=== PATIENT | female | born 1985 | race Caucasian/White ===

== ENCOUNTER 2018-03-14 20:07 | Emergency (ER) | payer OTHER ==
[2018-03-14 20:36] VITALS: BP 105/67
[2018-03-14] MEDS ORDERED: PENICILLIN V POTASSIUM 500 MG TABLET PO ONE (22:33)
[2018-03-14] MEDS ORDERED: DIPHENHYDRAMINE HCL 50 MG CAPSULE PO ONE (22:35)
[2018-03-14] MEDS ORDERED: PROCHLORPERAZINE MALEATE 10 MG TABLET PO ONE (22:35)
[2018-03-14] MEDS ORDERED: ACETAMINOPHEN 325 MG TABLET PO ONE (22:36)
--- NOTE | 2018-03-14 22:40 | ER Document Report ---
ED General - General Mode of Arrival: Ambulatory Information source: Patient TRAVEL OUTSIDE OF THE [place] IN LAST 30 DAYS: No <ANNA CONNELLY - Last Filed: 03/14/18 22:44> <JORGE GUTIERREZ - Last Filed: 03/14/18 23:52> - General Chief Complaint: Headache Stated Complaint: HEADACHES Time Seen by Provider: 03/14/18 22:02 Notes: Patient is a 32 year old female with a past history of narcotic abuse (and previous suboxone program) and migraines presents to the emergency department complaining of multiple symptoms including a headache, left ear pain and left lower tooth pain onset 4 days ago. Patient states her current headaches is not like her previous migraines stating her current one is lasting longer. Patient also complains of diaphoresis. She states she took a Motrin prior to arrival to the emergency department, approximately 2 hours ago. (ANNA CONNELLY) Patient is presently on methadone for her narcotic dependency, clonidine, Topamax, and sertraline for her posttraumatic stress disorder. (JORGE GUTIERREZ) - Related Data Allergies/Adverse Reactions: Iodinated Contrast- Oral and IV Dye [IV Dye, Iodine Containing] Allergy ( Verified 08/29/14 21:19) Anaphylaxis ketorolac tromethamine [From Toradol] Allergy (Verified 08/29/14 21:19) Hives Past Medical History - General Information source: Patient, [facility] Records - Social History Smoking Status: Current Every Day Smoker Family History: None Neurological Medical History: Reports: Hx Seizures Renal/ Medical History: Reports: Hx Ovarian Cysts GI Medical History: Reports: Hx Diverticulitis Musculoskeltal Medical History: Reports Hx Fibromyalgia Psychiatric Medical History: Reports: Hx Anxiety, Hx Depression, Hx Post Traumatic Stress Disorder Past Surgical History: Reports: Hx Abdominal Surgery, Hx Adenoidectomy, Hx Appendectomy, Hx Gynecologic Surgery, Hx Tonsillectomy - Immunizations Hx Diphtheria, Pertussis, Tetanus Vaccination: Yes - 2008 Hx Pneumococcal Vaccination: 11/06/08 <ANNA CONNELLY - Last Filed: 03/14/18 22:44> - Social History Cigarette use (# per day): Yes Chew tobacco use (# tins/day): No Smoking Education Provided: No Frequency of alcohol use: None Drug Abuse: Other - Narcotic dependency takes methadone denies drug abuse at this time Occupation: Unemployed Lives with: Friend Family History: Reviewed & Not Pertinent <JORGE GUTIERREZ - Last Filed: 03/14/18 23:52> Review of Systems - Review of Systems Constitutional: See HPI, Diaphoresis EENT: See HPI, Ear pain - left, Dental problem Cardiovascular: No symptoms reported Respiratory: No symptoms reported Gastrointestinal: No symptoms reported Genitourinary: No symptoms reported Female Genitourinary: No symptoms reported Musculoskeletal: No symptoms reported Skin: No symptoms reported Hematologic/Lymphatic: No symptoms reported Neurological/Psychological: See HPI, Headaches -: Yes All other systems reviewed and negative <ANNA CONNELLY - Last Filed: 03/14/18 22:44> Physical Exam - General General appearance: Appears well, Alert In distress: None - HEENT Head: Normocephalic, Atraumatic Eyes: Normal Conjunctiva: Normal Extraocular movements intact: Yes Pupils: PERRL Tympanic membrane: Normal Mouth/Lips: Dental fracture - left 2nd molar decayed, fractured, and tender to palpation. Minmal amount of swelling surrouding. Right 2nd and 3rd molar decayed and fractured, not currently tender to palaption. - Respiratory Respiratory status: No respiratory distress - Cardiovascular Rhythm: Regular Heart sounds: Normal auscultation - Extremities General upper extremity: Normal ROM General lower extremity: Normal ROM - Neurological Neuro grossly intact: Yes Cognition: Normal Orientation: AAOx4 [place] Coma Scale Eye Opening: Spontaneous Jones Coma Scale Verbal: Oriented Jones Coma Scale Motor: Obeys Commands Jones Coma Scale Total: 15 Speech: Normal - Psychological Associated symptoms: Normal affect, Normal mood - Skin Skin Temperature: Warm Skin Moisture: Dry Skin Color: Normal <ANNA CONNELLY - Last Filed: 03/14/18 22:44> - Vital signs Vitals: Temp Pulse Resp BP Pulse Ox 98.0 F 78 16 105/67 98 03/14/18 20:34 03/14/18 20:34 03/14/18 20:34 03/14/18 20:34 03/14/18 20:34 - Vital Signs Vital signs: Temp Pulse Resp BP Pulse Ox 98.0 F 78 16 105/67 98 03/14/18 20:35 03/14/18 20:35 03/14/18 20:35 03/14/18 20:35 03/14/18 20:35 Discharge <ANNA CONNELLY - Last Filed: 03/14/18 22:44> <JORGE GUTIERREZ - Last Filed: 03/14/18 23:52> - Discharge Clinical Impression: Tooth ache Headache Qualifiers: Headache type: other headache syndrome Qualified Code(s): G44.89 - Other headache syndrome Condition: Stable Disposition: HOME, SELF-CARE Instructions: Dentist Additional Instructions: Toothache Your pain is due to dental decay. The tooth must be repaired in order for you to feel better. You will, therefore, be referred to a dentist. Severe swelling or drainage around a tooth usually means a deep dental abscess. This also requires evaluation and treatment by the dentist, but antibiotics may be prescribed while awaiting dental treatment. You should be rechecked immediately if you develop major swelling of the face, increasing pain, a lump in the jaw or gums, headache, or fever. Take medications as prescribed. Take Tylenol and ibuprofen for pain as needed. Follow-up with a local dentist for definitive treatment of your severely decayed teeth. Prescriptions: Penicillin V Potassium [Penicillin Vk 500 mg Tablet] 500 mg PO QID #28 tablet Referrals: DENTISTRY [Provider Group] - Follow up as needed Scribe Attestation: 03/14/18 22:59 I personally performed the services described in the documentation, reviewed and edited the documentation which was dictated to the scribe in my presence, and it accurately records my words and actions. (JORGE GUTIERREZ) Scribe Documentation - Scribe Written by Rocco:: Rocco Hickman, 03/14/2018 22:47 acting as scribe for :: Nolvia <ANNA CONNELLY - Last Filed: 03/14/18 22:44>
== END 2018-03-15 00:05 | disposition home or self-care (01) ==
LOC: ER 20:07
DX: R51 Headache (principal); K02.9 Dental caries, unspecified; K08.89 Other specified disorders of teeth and supporting structures; H92.02 Otalgia, left ear; R61 Generalized hyperhidrosis; F17.200 Nicotine dependence, unspecified, uncomplicated; F19.20 Other psychoactive substance dependence, uncomplicated; Z79.891 Long term (current) use of opiate analgesic; Z86.69 Personal history of other diseases of the nervous system and sense organs
CPT/HCPCS: 99283; S0183

== ENCOUNTER 2019-07-16 18:29 | Emergency (ER) | payer OTHER ==
--- NOTE | 2019-07-16 20:56 | EKG REPORT ---
SEVERITY:- OTHERWISE NORMAL ECG - SINUS TACHYCARDIA : Confirmed by: Teresa Davis MD 16-Jul-2019 20:56:07
[2019-07-16] MEDS ORDERED: HYDROCODONE/ACETAMINOPHEN 5-325 MG TABLET PO ONE (21:05)
[2019-07-16] MEDS ORDERED: NORMAL SALINE 1000 ML 1,000 ML IV ONE (21:05)
--- NOTE | 2019-07-16 21:07 | ER Document Report ---
ED Medical Screen (RME) - General Chief Complaint: Headache Stated Complaint: HEADACHE Time Seen by Provider: 07/16/19 21:00 Notes: 34-year-old female with 2 complaints. First complaint is sharp pain from a broken tooth with swelling sensation on the left side of her face that radiates up to the ear and is causing her headache. Second complaint is sharp pain in the left flank that right now feels like it is throbbing. She denies vomiting, abdominal pain, dysuria. She states she has felt like she has been running a fever at home. She denies cough, shortness of breath, chest pain. TRAVEL OUTSIDE OF THE [place] IN LAST 30 DAYS: No - Related Data Allergies/Adverse Reactions: Iodinated Contrast Media [IV Dye, Iodine Containing] Allergy (Verified 07/16/19 18:32) Anaphylaxis ketorolac tromethamine [From Toradol] Allergy (Verified 07/16/19 18:32) Hives Past Medical History Neurological Medical History: Reports: Hx Seizures Renal/ Medical History: Reports: Hx Ovarian Cysts. Denies: Hx Peritoneal Dialysis GI Medical History: Reports: Hx Diverticulitis Musculoskeltal Medical History: Reports Hx Fibromyalgia Psychiatric Medical History: Reports: Hx Anxiety, Hx Depression, Hx Post Traumatic Stress Disorder Past Surgical History: Reports: Hx Abdominal Surgery, Hx Adenoidectomy, Hx Appendectomy, Hx Gynecologic Surgery, Hx Tonsillectomy - Immunizations Hx Diphtheria, Pertussis, Tetanus Vaccination: Yes - 2008 Physical Exam - Vital signs Vitals: Temp Pulse Resp BP Pulse Ox 99.1 F 123 H 18 119/77 92 07/16/19 18:45 07/16/19 18:45 07/16/19 18:45 07/16/19 18:45 07/16/19 18:45 - HEENT Mouth/Lips: Other - Dental caries on the left with erythema of the gumline but no noted abscess or swelling of the face - Cardiovascular Rhythm: Regular, Tachycardia Heart sounds: Normal auscultation, S1 appreciated, S2 appreciated Course - Re-evaluation Re-evalutation: I have greeted and performed a rapid initial assessment of this patient. A comprehensive ED assessment and evaluation of the patient, analysis of test results and completion of the medical decision making process will be conducted by additional ED providers. - Vital Signs Vital signs: Temp Pulse Resp BP Pulse Ox 99.1 F 123 H 18 119/77 92 07/16/19 18:45 07/16/19 18:45 07/16/19 18:45 07/16/19 18:45 07/16/19 18:45
[2019-07-16] MEDS ORDERED: DEXAMETHASONE 4 MG TABLET PO ONE (21:57)
[2019-07-16] MEDS ORDERED: METOCLOPRAMIDE HCL 10 MG TABLET PO ONE (21:57)
[2019-07-16] MEDS ORDERED: KETOROLAC TROMETHAMINE 60 MG/2 ML SDV IM ONE (21:57)
[2019-07-16] MEDS ORDERED: DIPHENHYDRAMINE HCL 50 MG CAPSULE PO ONE (21:57)
[2019-07-16 22:02] LABS: ABSOLUTE BASOPHILS # (AUTO) 0.1 10^3/uL (0.0-0.2); ABSOLUTE EOSINOPHILS # (AUTO) 0.1 10^3/uL (0.0-0.6); ABSOLUTE LYMPHOCYTES (AUTO) 3.3 10^3/uL (0.5-4.7); ABSOLUTE MONOCYTES (AUTO) 0.4 10^3/uL (0.1-1.4); ABSOLUTE NEUT (AUTO) 3.2 10^3/uL (1.7-8.2); EOSINOPHILS % (AUTO) 1.4 % (0-6); HEMATOCRIT 46.4 % (36.0-47.0); HEMOGLOBIN 15.8 g/dL (12.0-15.5); LYMPHOCYTES % (AUTO) 46.3 % (13-45); MEAN CORPUSCULAR HEMOGLOBIN 33.1 pg (27.0-33.4); MEAN CORPUSCULAR HGB CONC 34.1 g/dL (32.0-36.0); MEAN CORPUSCULAR VOLUME 97 fl (80-97); MONOCYTES % (AUTO) 6.2 % (3-13); PLATELET COUNT 302 10^3/uL (150-450); RED BLOOD COUNT 4.78 10^6/uL (3.72-5.28); RED CELL DISTRIBUTION WIDTH 13.6 % (11.5-14.0); SEGMENTED NEUTROPHILS % (AUTO) 45.1 % (42-78); TOTAL CELLS COUNTED % (AUTO) 100 %; WHITE BLOOD COUNT 7.1 10^3/uL (4.0-10.5)
[2019-07-16 22:04] LABS: AMORPHOUS SEDIMENT,URINE TRACE /HPF; APPEARANCE,URINE CLOUDY; BILIRUBIN,URINE NEGATIVE (NEGATIVE); COLOR,URINE YELLOW; GLUCOSE, URINE NEGATIVE (NEGATIVE); KETONES,URINE NEGATIVE (NEGATIVE); LEUKOCYTE ESTERASE,URINE NEGATIVE (NEGATIVE); NITRITE,URINE NEGATIVE (NEGATIVE); PROTEIN,URINE NEGATIVE (NEGATIVE); URINE SPECIFIC GRAVITY 1.019; UROBILINOGEN,URINE NEGATIVE mg/dL (<2.0)
--- NOTE | 2019-07-16 22:05 | ER Document Report ---
ED General - General Chief Complaint: Headache Stated Complaint: HEADACHE Time Seen by Provider: 07/16/19 21:00 Notes: 34-year-old female presents with headache. Describes left face pain, intermittent shooting down her face from her left ear. Is been going on for a couple days. This in the setting of runny nose congestion and intermittent fevers. She has also some bad teeth especially in the left lower. She denies blurry vision neck stiffness or back pain. She has some left flank pain as well. Is been going on for several weeks. No nausea vomiting. Prior history of endometriosis and surgery on the left flank/lower quadrant that she is not sure what is for. She also feels a knot where the flank pain is underneath this incision. Normal urination. TRAVEL OUTSIDE OF THE [place] IN LAST 30 DAYS: No - Related Data Allergies/Adverse Reactions: Iodinated Contrast Media [IV Dye, Iodine Containing] Allergy (Verified 07/16/19 18:32) Anaphylaxis ketorolac tromethamine [From Toradol] Allergy (Verified 07/16/19 18:32) Hives Past Medical History - General Last Menstrual Period: Last month - Social History Smoking Status: Current Every Day Smoker Family History: Reviewed & Not Pertinent Neurological Medical History: Reports: Hx Seizures Renal/ Medical History: Reports: Hx Ovarian Cysts. Denies: Hx Peritoneal Dialysis GI Medical History: Reports: Hx Diverticulitis Musculoskeletal Medical History: Reports Hx Fibromyalgia Psychiatric Medical History: Reports: Hx Anxiety, Hx Depression, Hx Post Trauma tic Stress Disorder Past Surgical History: Reports: Hx Abdominal Surgery, Hx Adenoidectomy, Hx Appendectomy, Hx Gynecologic Surgery, Hx Tonsillectomy - Immunizations Hx Diphtheria, Pertussis, Tetanus Vaccination: Yes - 2008 Hx Pneumococcal Vaccination: 11/06/08 Review of Systems - Review of Systems Notes: REVIEW OF SYSTEMS GEN: Denies fever, chills, weight loss ENT: See HPI EYES: Denies blurry vision, eye pain, discharge CV: Denies chest pain, palpitations, edema RESP: Denies cough, shortness of breath, wheezing GI: See HPI MSK: Denies joint pain/swelling, edema, SKIN: Denies rash, skin lesions LYMPH: Denies swollen glands/lymph nodes NEURO: See HPI PSYCH: Denies depression, suicidal or homicidal ideation PHYSICAL EXAMINATION General: No acute distress, well-nourished Head: Atraumatic, normocephalic ENT: Mouth normal, oropharynx moist, no exudates or tonsillar enlargement with multiple tooth decay left lower. Mild tooth tenderness at the site but no maxillary tenderness. Bilateral TMs are normal. Eyes: Conjunctiva normal, pupils equal, lids normal Neck: No JVD, supple, no guarding CVS: Normal rate, regular rhythm, no murmurs Resp: No resp distress, equal and normal breath sounds bilaterally GI: Nondistended, soft, no tenderness to palpation, no rebound or guarding Ext: No deformities, no edema, normal range of motion in upper and lower ext Back: No CVA or midline TTP Skin: No rash, warm Lymphatic: No lymphadeopathy noted Neuro: Awake, alert. Face symmetric. GCS 15. cn2-12 nl. Physical Exam - Vital signs Vitals: Temp Pulse Resp BP Pulse Ox 99.1 F 123 H 18 119/77 92 07/16/19 18:45 07/16/19 18:45 07/16/19 18:45 07/16/19 18:45 07/16/19 18:45 Course - Re-evaluation Re-evalutation: 07/16/19 22:53 Patient presents with left-sided face pain/headache, possibly from decaying teeth or sinusitis but also could be trigeminal neuralgia. Neck not stiff no meningismus no fever doubt meningitis. She was given a migraine cocktail which improved her symptoms. Was initially tachycardic but this resolved. Labs ordered at triage are all negative including urine. Her flank pain is accounted for by a reducible incisional hernia. [facility] I have discussed with the patient there likely diagnosis, aftercare plan, follow-up plans and my usual and customary return precautions. They verbalized understanding of this. - Vital Signs Vital signs: Temp Pulse Resp BP Pulse Ox 99.1 F 123 H 18 119/77 92 07/16/19 18:45 07/16/19 18:45 07/16/19 18:45 07/16/19 18:45 07/16/19 18:45 - Laboratory Result Diagrams: 07/16/19 21:24 07/16/19 21:24 Laboratory results interpreted by me: 07/16/19 21:24 Hgb 15.8 H Lymph % (Auto) 46.3 H Discharge - Discharge Clinical Impression: Facial pain Acute sinusitis Qualifiers: Sinusitis location: maxillary Recurrence: non-recurrent Qualified Code(s): J01.00 - Acute maxillary sinusitis, unspecified Disposition: HOME, SELF-CARE Instructions: Headache ([facility]), Sinusitis ([facility]) Additional Instructions: Your facial pain may be from teeth decay or sinus infection thus we are treating you with antibiotics. There also may be a chance to have a headache syndrome such as trigeminal neuralgia if your headache does not resolve after a few days of antibiotics and ibuprofen you to follow-up with your primary for a referral to neurology. Prescriptions: Naproxen Sodium [Aleve] 220 mg PO BID #30 capsule Amox Tr/Potassium Clavulanate [Augmentin 875-125 Tablet] 1 tab PO BID 10 Days tablet
[2019-07-16 22:18] LABS: ALBUMIN 4.5 g/dL (3.5-5.0); ALKALINE PHOSPHATASE 38 U/L (38-126); ANION GAP 8 (5-19); ASPARTATE AMINO TRANSFERASE 32 U/L (14-36); BILIRUBIN,DIRECT 0.2 mg/dL (0.0-0.4); BILIRUBIN,TOTAL 0.4 mg/dL (0.2-1.3); BLOOD UREA NITROGEN 10 mg/dL (7-20); CALCIUM 9.5 mg/dL (8.4-10.2); CARBON DIOXIDE 30 mmol/L (22-30); CHLORIDE 100 mmol/L (98-107); GLUCOSE 79 mg/dL (75-110); POTASSIUM 4.7 mmol/L (3.6-5.0); TOTAL PROTEIN 7.3 g/dL (6.3-8.2)
[2019-07-16] MEDS ORDERED: AMOXICILLIN TR/POT CLAVULANATE 500-125 MG TAB PO ONE (22:41)
[2019-07-16 23:37] VITALS: BP 124/70
== END 2019-07-16 23:34 | disposition home or self-care (01) ==
LOC: ER 18:29
DX: J01.00 Acute maxillary sinusitis, unspecified (principal); R51 Headache; H92.02 Otalgia, left ear; R09.89 Other specified symptoms and signs involving the circulatory and respiratory systems; R10.9 Unspecified abdominal pain; K02.9 Dental caries, unspecified; R00.0 Tachycardia, unspecified; F17.200 Nicotine dependence, unspecified, uncomplicated; Z90.49 Acquired absence of other specified parts of digestive tract; Z87.42 Personal history of other diseases of the female genital tract; Z87.19 Personal history of other diseases of the digestive system; Z87.892 Personal history of anaphylaxis; Z91.041 Radiographic dye allergy status; Z88.8 Allergy status to other drugs, medicaments and biological substances
CPT/HCPCS: 93005; 99284; 96372; 36415; 85025; 81025; 80053; 81001; 93010; J1885

== ENCOUNTER 2019-07-20 02:44 | Emergency (ER) | payer OTHER ==
[2019-07-20 02:51] VITALS: BP 126/75
[2019-07-20] MEDS ORDERED: ALBUTEROL SULFATE HFA (90 MCG/PUFF) 8 GM MDI (1 MDI/ER DISP) IH PRN (03:45)
[2019-07-20] MEDS ORDERED: DIPHENHYDRAMINE HCL 50 MG/ML VIAL IV ONE (03:56)
[2019-07-20] MEDS ORDERED: HYDROCODONE/ACETAMINOPHEN 5-325 MG TABLET PO ONE (04:00)
[2019-07-20] MEDS ORDERED: METOCLOPRAMIDE HCL INJ/PF 10 MG/2 ML SDV IV ONE (04:00)
[2019-07-20] MEDS ORDERED: NORMAL SALINE 1000 ML 1,000 ML IV ONE (04:04)
[2019-07-20 04:14] LABS: ABSOLUTE BASOPHILS # (AUTO) 0.1 10^3/uL (0.0-0.2); ABSOLUTE EOSINOPHILS # (AUTO) 0.1 10^3/uL (0.0-0.6); ABSOLUTE LYMPHOCYTES (AUTO) 2.9 10^3/uL (0.5-4.7); ABSOLUTE MONOCYTES (AUTO) 0.4 10^3/uL (0.1-1.4); ABSOLUTE NEUT (AUTO) 3.4 10^3/uL (1.7-8.2); BASOPHILS % (AUTO) 0.9 % (0-2); EOSINOPHILS % (AUTO) 1.1 % (0-6); HEMATOCRIT 41.6 % (36.0-47.0); HEMOGLOBIN 14.2 g/dL (12.0-15.5); LYMPHOCYTES % (AUTO) 42.5 % (13-45); MEAN CORPUSCULAR HEMOGLOBIN 32.8 pg (27.0-33.4); MEAN CORPUSCULAR HGB CONC 34.2 g/dL (32.0-36.0); MEAN CORPUSCULAR VOLUME 96 fl (80-97); MONOCYTES % (AUTO) 6.5 % (3-13); PLATELET COUNT 260 10^3/uL (150-450); RED BLOOD COUNT 4.34 10^6/uL (3.72-5.28); RED CELL DISTRIBUTION WIDTH 13.2 % (11.5-14.0); TOTAL CELLS COUNTED % (AUTO) 100 %; WHITE BLOOD COUNT 6.9 10^3/uL (4.0-10.5)
[2019-07-20 04:32] LABS: ANION GAP 7 (5-19); BLOOD UREA NITROGEN 14 mg/dL (7-20); CALCIUM 9.2 mg/dL (8.4-10.2); CARBON DIOXIDE 28 mmol/L (22-30); CHLORIDE 103 mmol/L (98-107); GLUCOSE 95 mg/dL (75-110); POTASSIUM 4.1 mmol/L (3.6-5.0)
[2019-07-20] MEDS ORDERED: ONDANSETRON ODT 4 MG TAB (6 TAB/ER DISP) PO PRN (06:45)
[2019-07-20] MEDS ORDERED: OXYCODONE-ACETAMINOPHEN 5-325 MG TABLET PO ONE (06:45)
--- NOTE | 2019-07-20 06:45 | ER Document Report ---
ED General - General Chief Complaint: Headache Stated Complaint: HEADACHE Time Seen by Provider: 07/20/19 03:37 Primary Care Provider: AMARJIT HARGROVE [Primary Care Provider] - 07/22/19 Notes: Patient is a 34-year-old female who presents emergency department with a chief complaint of a headache. She states it feels the same as it did the other day. She was diagnosed with trigeminal neuralgia. She states that she feels like it is any pain on the left side of her face. She describes it as a tingling sensation and is intermittent. When her pain comes at a severe. She has attempted to take ibuprofen to help with her symptoms, but has had little relief. She has not started on her Augmentin that she was prescribed other day due to her having the [facility] and she states that she has an appointment on Monday to see her primary care provider to have her medications refilled. She denies any slurred speech, numbness or tingling in her arms or legs. Denies any new weakness. TRAVEL OUTSIDE OF THE [place] IN LAST 30 DAYS: No - Related Data Allergies/Adverse Reactions: Iodinated Contrast Media [IV Dye, Iodine Containing] Allergy (Verified 07/16/19 18:32) Anaphylaxis ketorolac tromethamine [From Toradol] Allergy (Verified 07/16/19 18:32) Hives Past Medical History - General Information source: Patient - Social History Smoking Status: Current Every Day Smoker Family History: Reviewed & Not Pertinent Neurological Medical History: Reports: Hx Seizures Renal/ Medical History: Reports: Hx Ovarian Cysts. Denies: Hx Peritoneal Dialysis GI Medical History: Reports: Hx Diverticulitis Musculoskeletal Medical History: Reports Hx Fibromyalgia Psychiatric Medical History: Reports: Hx Anxiety, Hx Depression, Hx Post Traumatic Stress Disorder Past Surgical History: Reports: Hx Abdominal Surgery, Hx Adenoidectomy, Hx Appendectomy, Hx Gynecologic Surgery, Hx Tonsillectomy - Immunizations Hx Diphtheria, Pertussis, Tetanus Vaccination: Yes - 2008 Hx Pneumococcal Vaccination: 11/06/08 Review of Systems - Review of Systems Notes: REVIEW OF SYSTEMS: CONSTITUTIONAL : Denies recent illness. Denies recent unintentional weight loss. Denies fever, chills, or sweats. EENT: Denies eye, ear, throat, or mouth pain, discharge, or symptoms. Denies nasal or sinus congestion. CARDIOVASCULAR: Denies chest pain. RESPIRATORY: Denies shortness of breath, cough, congestion, difficulty breathing, or wheezing. GASTROINTESTINAL: Denies nausea, vomiting, and diarrhea. Denies abdominal pain. Denies constipation. GENITOURINARY: Denies difficulty urinating, burning, blood in urine, urgency or frequency. MUSCULOSKELETAL: Denies neck and back pain. Denies joint pain or swelling. SKIN: Denies rash, itchiness, or lesions HEMATOLOGIC : Denies easy bruising or bleeding. LYMPHATIC: Denies swollen, painful, enlarged glands. NEUROLOGICAL: See HPI. PSYCHIATRIC: Denies stress, anxiety, alteration in sleep patterns, or depression. All other systems reviewed and negative. Physical Exam - Vital signs Vitals: Temp Pulse Resp BP Pulse Ox 98.7 F 95 19 126/75 H 95 07/20/19 02:46 07/20/19 02:46 07/20/19 02:46 07/20/19 02:46 07/20/19 02:46 - Notes Notes: PHYSICAL EXAMINATION: GENERAL: Appears well, healthy, well-nourished, no acute distress. HEAD: Normocephalic, atraumatic. Tenderness noted to the left side of the face. EYES: PERRL, conjunctiva normal, all extraocular movements intact, sclera nonicteric ENT: Moist mucous membranes. NECK: Supple, no noticeable swelling, redness, rash. Normal range of motion. LUNGS: Equal breath sounds bilaterally and clear to auscultation. No wheezes rales or rhonchi. CARDIOVASCULAR: S1-S2, regular rate, regular rhythm. Radial pulses 2+, normal. ABDOMEN: Normoactive bowel sounds. Soft, nontender, no guarding, no rebound tenderness, and no masses palpated. EXTREMITIES: Normal strength and range of motion, no pitting or edema. No cyanosis. NEUROLOGICAL: Moves all extremities upon command. Strength 5/5 in all extremities. PSYCH: Normal mood, normal affect. SKIN: Warm, dry. No rash, lesions, ulcerations noted. Normal skin turgor. Course - Re-evaluation Re-evalutation: 07/20/19 06:47 Hematology and chemistry are unremarkable. There is no leukocytosis noted. No anemia noted. Patient states that she feels her headache has completely resolved with Benadryl, Reglan, and [place]. I will give her a dose of her antibiotics, but I spoke to the patient about how imperative it is for her to fill her Augmentin. She states that she will have her Augmentin filled at the [facility] on Monday. She will be sent home with a [place] dose pack and a Zofran Dosepak to help with her symptoms. She is in agreement with this plan. Follow-up precautions were given. Verbal discharge instructions were given to the patient. They verbalized understanding. They are stable for discharge. - Vital Signs Vital signs: Temp Pulse Resp BP Pulse Ox 98.7 F 95 19 126/75 H 95 07/20/19 02:46 07/20/19 02:46 07/20/19 02:46 07/20/19 02:46 07/20/19 02:46 - Laboratory Result Diagrams: 07/20/19 04:00 07/20/19 04:00 Discharge - Discharge Clinical Impression: Facial pain Headache Qualifiers: Headache type: other headache syndrome Qualified Code(s): G44.89 - Other headache syndrome Condition: Stable Disposition: HOME, SELF-CARE Additional Instructions: You were seen today in the emergency department for a headache. Your headache was resolved with the treatment here in the emergency department. You are being sent home with [place], medication to help with your pain. You can take 1 tablet every 4-6 hours as needed. Try to limit the amount of times you take your [place], as you may have a small amount. You can also take ibuprofen to help with your pain. Take 600 mg every 6 hours. You can take 650 mg of every 6 hours. If you have a headache, please take 50 mg of Benadryl immediately. You can take it every 4-6 hours as needed for your headache. Please make sure you get plenty of rest. Please make sure you follow-up with your primary care provider on Monday to have your antibiotics filled. Referrals: [facility] [Primary Care Provider] - 07/22/19
[2019-07-20] MEDS ORDERED: HYDROCODONE/ACETAMINOPHEN 5-325 MG (6 TAB/ER DISP) PO PRN (06:46)
[2019-07-20] MEDS ORDERED: AMOXICILLIN TR/POT CLAVULANATE 500-125 MG TAB PO ONE (06:53)
[2019-07-20] MEDS ORDERED: AMOXICILLIN TRIHYD 250 MG CAPSULE PO ONE (06:53)
== END 2019-07-20 07:14 | disposition home or self-care (01) ==
LOC: ER 02:44
DX: G44.89 Other headache syndrome (principal); R20.2 Paresthesia of skin; T36.0X6A Underdosing of penicillins, initial encounter; Z91.128 Patient's intentional underdosing of medication regimen for other reason; F17.200 Nicotine dependence, unspecified, uncomplicated; Z91.041 Radiographic dye allergy status; Z88.8 Allergy status to other drugs, medicaments and biological substances
CPT/HCPCS: 99284; 96361; 96374; 96375; 36415; 85025; 80048; J3490 ×2; J1200; J2765; J7030

== ENCOUNTER 2020-02-29 11:30 | Emergency (ER) | payer OTHER ==
[2020-02-29] MEDS ORDERED: METOCLOPRAMIDE HCL INJ/PF 10 MG/2 ML SDV IV ONE (11:50)
[2020-02-29] MEDS: NORMAL SALINE 1000 ML 1,000 ML IV PRN ×2 (11:59→13:07)
[2020-02-29 12:17] LABS: ABSOLUTE LYMPHOCYTES (AUTO) 1.4 10^3/uL (0.5-4.7); ABSOLUTE MONOCYTES (AUTO) 0.2 10^3/uL (0.1-1.4); ABSOLUTE NEUT (AUTO) 7.7 10^3/uL (1.7-8.2); BASOPHILS % (AUTO) 0.3 % (0-2); EOSINOPHILS % (AUTO) 0.2 % (0-6); HEMATOCRIT 44.1 % (36.0-47.0); HEMOGLOBIN 15.7 g/dL (12.0-15.5); LYMPHOCYTES % (AUTO) 14.7 % (13-45); MEAN CORPUSCULAR HEMOGLOBIN 34.2 pg (27.0-33.4); MEAN CORPUSCULAR HGB CONC 35.5 g/dL (32.0-36.0); MEAN CORPUSCULAR VOLUME 96 fl (80-97); MONOCYTES % (AUTO) 2.6 % (3-13); PLATELET COUNT 259 10^3/uL (150-450); RED BLOOD COUNT 4.58 10^6/uL (3.72-5.28); RED CELL DISTRIBUTION WIDTH 13.6 % (11.5-14.0); SEGMENTED NEUTROPHILS % (AUTO) 82.2 % (42-78); TOTAL CELLS COUNTED % (AUTO) 100 %; WHITE BLOOD COUNT 9.3 10^3/uL (4.0-10.5)
[2020-02-29 12:38] LABS: AMORPHOUS SEDIMENT,URINE 1+ /HPF; APPEARANCE,URINE TURBID; BILIRUBIN,URINE NEGATIVE (NEGATIVE); COLOR,URINE YELLOW; GLUCOSE, URINE NEGATIVE (NEGATIVE); KETONES,URINE 80 mg/dL (NEGATIVE); PROTEIN,URINE 30 mg/dL (NEGATIVE); URINE SPECIFIC GRAVITY 1.017; UROBILINOGEN,URINE NEGATIVE mg/dL (<2.0)
[2020-02-29 12:45] LABS: ALBUMIN 4.4 g/dL (3.5-5.0); ALKALINE PHOSPHATASE 47 U/L (38-126); ANION GAP 9 (5-19); ASPARTATE AMINO TRANSFERASE 28 U/L (14-36); BILIRUBIN,TOTAL 0.5 mg/dL (0.2-1.3); BLOOD UREA NITROGEN 15 mg/dL (7-20); CALCIUM 9.5 mg/dL (8.4-10.2); CARBON DIOXIDE 21 mmol/L (22-30); CHLORIDE 107 mmol/L (98-107); GLUCOSE 173 mg/dL (75-110); TOTAL PROTEIN 7.1 g/dL (6.3-8.2)
[2020-02-29 12:48] LABS: ALCOHOL < 10 mg/dL (NONE DETECTED)
[2020-02-29 12:53] LABS: URINE AMPHETAMINES SCREEN NEGATIVE; URINE BARBITURATES SCREEN NEGATIVE; URINE BENZODIAZEPINES SCREEN NEGATIVE; URINE COCAINE SCREEN NEGATIVE; URINE PHENCYCLIDINE SCREEN NEGATIVE
[2020-02-29 12:55] LABS: URINE MARIJUANA (THC) SCREEN UNCONFIRMED POSITIVE; URINE METHADONE SCREEN UNCONFIRMED POSITIVE
[2020-02-29] MEDS ORDERED: PROCHLORPERAZINE EDISYLATE INJ 10 MG/2 ML VIAL IV ONE (12:55)
[2020-02-29] MEDS ORDERED: FENTANYL CITRATE INJ/PF 100 MCG/2 ML AMPUL IV ONE ×2 (12:56→13:56)
--- NOTE | 2020-02-29 13:12 | ER Document Report ---
ED General - General Chief Complaint: Abdominal Pain Stated Complaint: ABDOMINAL PAIN Time Seen by Provider: 02/29/20 11:37 Primary Care Provider: [facility]INN[facility] [Primary Care Provider] - Follow up as needed TRAVEL OUTSIDE OF THE [place] IN LAST 30 DAYS: No - HPI Notes: Chief complaint: Abdominal pain and vomiting HPI: 34-year-old female with longstanding history of chronic/recurrent abdominal and pelvic pain attributed to endometriosis. Patient also has a history of past narcotic abuse and chronic pain syndrome and she is currently on daily methadone. She will awaken this morning around 3 AM with severe cramping left upper and left lower quadrant abdominal pain which she says is little different from what she usually has with these episodes. She also notes that she is not had a bowel movement in 2 days and thought she might be constipated. She apparently took laxative at home and immediately vomited this up and feels that her pain is worse now. Patient has had a previous appendectomy. She is allergic to IV contrast. She also indicates she is allergic to ketorolac. She notes that she has not been able to take her methadone today. She denies any abuse of street drugs. She denies consumption of alcohol. She denies fever or chills. She denies dysuria. She denies vaginal discharge or vaginal bleeding. Last menses 1 week ago. Patient is followed primarily at the [place]. - Related Data Allergies/Adverse Reactions: Iodinated Contrast Media [IV Dye, Iodine Containing] Allergy (Verified 02/29/20 12:17) Anaphylaxis ketorolac tromethamine [From Toradol] Allergy (Verified 02/29/20 12:17) Hives Past Medical History - General Information source: Patient, [facility] Records - Social History Smoking Status: Unknown if Ever Smoked Family History: Reviewed & Not Pertinent Patient has suicidal ideation: No Patient has homicidal ideation: No Neurological Medical History: Reports: Hx Seizures Renal/ Medical History: Reports: Hx Ovarian Cysts. Denies: Hx Peritoneal Dialysis GI Medical History: Reports: Hx Diverticulitis Musculoskeletal Medical History: Reports Hx Fibromyalgia Psychiatric Medical History: Reports: Hx Anxiety, Hx Depression, Hx Post Traumatic Stress Disorder Past Surgical History: Reports: Hx Abdominal Surgery, Hx Adenoidectomy, Hx Appendectomy, Hx Gynecologic Surgery, Hx Tonsillectomy - Immunizations Hx Diphtheria, Pertussis, Tetanus Vaccination: Yes - 2008 Hx Pneumococcal Vaccination: 11/06/08 Review of Systems - Review of Systems Notes: Constitutional: Negative for fever. HENT: Negative for sore throat. Eyes: Negative for visual changes. Cardiovascular: Negative for chest pain. Respiratory: Negative for shortness of breath. Gastrointestinal: As per HPI. Genitourinary: As per HPI. Musculoskeletal: Negative for back pain. Skin: Negative for rash. Neurological: Negative for headaches, weakness or numbness. 10 point ROS negative except as marked above and in HPI. Physical Exam - Vital signs Vitals: Temp Pulse Resp BP Pulse Ox 97.3 F 882 H 16 126/73 H 100 02/29/20 12:03 02/29/20 12:03 02/29/20 12:03 02/29/20 12:03 02/29/20 12:03 - Notes Notes: GENERAL: Female patient approximately stated age who is writhing in pain and vomiting upon arrival here by EMS. SKIN: Good turgor no rashes. HEAD: Normocephalic atraumatic. EYES: PERRLA. EOMI. Conjunctivae and sclerae clear. EARS: CANALS AND TMS CLEAR. NOSE: CLEAR. MOUTH: Moist mucosa. Good dentition. No stridor or edema. No drooling. NECK: Supple. No masses or thyromegaly. No adenopathy. Carotids 2+ without bruits. No JVD. BACK: Symmetrical without tenderness. CHEST: Respirations unlabored. Breath sounds clear and symmetrical. HEART: Regular rhythm. No murmur gallop or rub. ABDOMEN: Mild tenderness left upper quadrant and left lower quadrant. Soft without masses, organomegaly or rebound. Bowel sounds normally active. No bruits. GENITALIA: Deferred. EXTREMITIES: No edema. No calf tenderness. Cap refill less than 1.5 seconds. Dorsalis pedis and posterior tibial pulses 3+ and symmetrical. NEUROLOGICAL: GCS 15. Alert and oriented x3. Fluent speech. Cranial nerves II through XII intact. Sensorimotor and cerebellar normal. Normal tone. PSYCHIATRIC: Appropriate affect. Course - Re-evaluation Re-evalutation: 02/29/20 14:04 CT read as normal by radiologist. Patient improved with IV hydration and IV Compazine and fentanyl. I explained to her that I do not see anything of a surgical nature here and feel that she can be safely managed symptomatically outpatient with the understanding that she will need to return here if her symptoms fail to totally resolve within the next 24 hours or if she experiences new or worsening symptoms. She fully understands this and will follow-up with her primary care physician. - Vital Signs Vital signs: Temp Pulse Resp BP Pulse Ox 97.3 F 882 H 16 126/73 H 100 02/29/20 12:03 02/29/20 12:03 02/29/20 12:03 02/29/20 12:03 02/29/20 12:03 - Laboratory Result Diagrams: 02/29/20 11:53 02/29/20 11:53 Laboratory results interpreted by me: 02/29/20 02/29/20 02/29/20 11:53 11:53 12:26 Hgb 15.7 H MCH 34.2 H Isabella % (Auto) 2.6 L Seg Neutrophils % 82.2 H Carbon Dioxide 21 L Glucose 173 H Urine Protein 30 H Urine Ketones 80 H Leukocyte Esterase Rfl TRACE H Discharge - Discharge Clinical Impression: Endometriosis Abdominal pain Qualifiers: Abdominal location: left lower quadrant Qualified Code(s): R10.32 - Left lower quadrant pain Vomiting Qualifiers: Vomiting type: cyclical vomiting syndrome unrelated to migraine Qualified Code(s): R11.15 - Cyclical vomiting syndrome unrelated to migraine Condition: Stable Disposition: HOME, SELF-CARE Instructions: Abdominal Pain ([facility]), Vomiting ([facility]) Additional Instructions: Take prescribed medication as discussed. Continue your usual medications. Return here as needed for new or worsening symptoms: Pain that is worsening or unimproved Uncontrolled vomiting High fever or shaking chills Overall worsening Follow-up with your primary care provider Prescriptions: Ondansetron [Zofran Odt 4 mg Tablet] 1 - 2 tab PO Q4H PRN #15 tab.rapdis PRN Reason: For Nausea/Vomiting [facility]errals: [facility] [Primary [facility]] - Follow up as needed
--- NOTE | 2020-02-29 13:38 | RADIOLOGY REPORT (SQ) ---
EXAM DESCRIPTION: CT ABD/PELVIS NO ORAL OR IV IMAGES COMPLETED DATE/TIME: 02/29/2020 1:18 pm REASON FOR STUDY: LLQ pain COMPARISON: None. TECHNIQUE: CT scan of the abdomen and pelvis performed without intravenous or oral contrast. Images reviewed with lung, soft tissue, and bone windows. Reconstructed coronal and sagittal MPR images revi ewed. All images stored on PACS. All CT scanners at this facility use dose modulation, iterative reconstruction, and/or weight based d osing when appropriate to reduce radiation dose to as low as reasonably achievable (ALARA). [facility]: Dose Right [facility]: CareDose [facility]: Dose Right [facility]: Teradose 4D [facility]: Smart [employer] RADIATION DOSE: CT Rad equipment meets quality standard of care and radiation dose reduction techniq ues were employed. CTDIvol: 9.5 mGy. DLP: 490 mGy-cm.mGy. LIMITATIONS: None. FINDINGS: LOWER CHEST: No significant findings. No nodules or infiltrates. NON-CONTRASTED LIVER, SPLEEN, ADRENALS: Evaluation limited by lack of IV contrast. Hepatomegaly, ove rall length 24 cm. Geographic areas of fatty infiltration. No identified significant masses. PANCREAS: No masses. No peripancreatic inflammatory changes. GALLBLADDER: No identified stones by CT criteria. No inflammatory changes to suggest cholecystitis. RIGHT KIDNEY AND URETER: No suspicious masses. Assessment limited by lack of IV contrast. No signif icant calcifications. No hydronephrosis or hydroureter. LEFT KIDNEY AND URETER: No suspicious masses. Assessment limited by lack of IV contrast. No signifi cant calcifications. No hydronephrosis or hydroureter. AORTA AND RETROPERITONEUM: No aneurysm. No retroperitoneal masses or adenopathy. BOWEL AND PERITONEAL CAVITY: No obvious masses or inflammatory changes. No free fluid. APPENDIX: Calcific material. No inflammatory changes. PELVIS, BLADDER, AND ABDOMINAL WALL:No abnormal masses. No free fluid. Bladder normal. BONES: No significant findings. OTHER: No other significant finding. IMPRESSION: HEPATOMEGALY WITH FATTY INFILTRATION OF THE LIVER. NO OTHER SIGNIFICANT OR ACUTE PROCES S IN THE ABDOMEN OR PELVIS. COMMENT: Quality ID # [id number]: Final reports with documentation of one or more dose reduction techniques (e.g., Automated exposure control, adjustment of the mA and/or kV according to patient size, use of iterative reconstruction technique) TECHNICAL DOCUMENTATION: JOB ID: [id number] 2011 [employer]- All Rights Reserved Reading location - IP/workstation name: [email or web address]
[2020-02-29 15:13] VITALS: BP 144/92
--- NOTE | 2020-03-01 10:35 | EKG REPORT ---
SEVERITY:- NORMAL ECG - SINUS RHYTHM APCs : Confirmed by: Hector Blair 01-Mar-2020 10:34:44
== END 2020-02-29 15:08 | disposition home or self-care (01) ==
LOC: ER 11:30
DX: N80.9 Endometriosis, unspecified (principal); R11.15 Cyclical vomiting syndrome unrelated to migraine; R10.12 Left upper quadrant pain; R10.32 Left lower quadrant pain; G89.4 Chronic pain syndrome; R10.812 Left upper quadrant abdominal tenderness; R10.814 Left lower quadrant abdominal tenderness; Z79.891 Long term (current) use of opiate analgesic; Z90.49 Acquired absence of other specified parts of digestive tract; Z88.8 Allergy status to other drugs, medicaments and biological substances; Z91.041 Radiographic dye allergy status
CPT/HCPCS: 93005; 96376; 99284; 96361; 96374; 96375; 36415; 80307 ×2; 83605; 83690; 84703; 85025; 80053; 81001; 74176; 93010; J3010; J2765; J0780; J7030